=== PATIENT | female | born 1965 ===

== ENCOUNTER 2017-08-01 11:14 | Inpatient (IN) | payer MEDICAID, OTHER ==
[2017-08-01 11:19] VITALS: BMI 29.2
[2017-08-01 11:22] VITALS: O2SAT 98
[2017-08-01] MEDS ORDERED: Sodium Chloride 0.9% 1,000 ML IV ONE (12:23)
[2017-08-01] MEDS ORDERED: DiphenhydrAMINE 50 mg/ml Inj IVP STA (12:23)
--- NOTE | 2017-08-01 12:27 | C.PDOC ---
History Of Present Illness 52 yr old female presents to the ER stating she tried to harm herself today but was stopped by her . Patient states she wanted to cut her wrist. Patient denies history of depression or previous episodes of suicidal attempts. Also denies HI, hallucinations, nausea, vomiting, abdominal pain, weakness or numbness. 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) Suicide/Self Injury Attempted (Context): Cut Wrists Past Medical History Reviewed: Historical Data, Nursing Documentation, Vital Signs Vital Signs: Last Vital Signs Temp 98.6 F 08/01/17 11:19 Pulse 90 08/01/17 11:19 Resp 18 08/01/17 11:19 BP 137/85 08/01/17 11:19 Pulse Ox 98 08/01/17 14:06 - Medical History PMH: Anxiety, Depression Family History: States: No Known Family Hx - Social History Hx Alcohol Use: No Hx Substance Use: No - Immunization History Hx Tetanus Toxoid Vaccination: No Hx Influenza Vaccination: Yes Hx Pneumococcal Vaccination: No Review Of Systems Except As Marked, All Systems Reviewed And Found Negative. Gastrointestinal: Negative for: Nausea, Vomiting, Abdominal Pain Neurological: Negative for: Weakness, Numbness Psych: Positive for: Suicidal ideation Physical Exam - Physical Exam Appears: Non-toxic, No Acute Distress Skin: Warm, No Rash Head: Atraumatic, Normacephalic Eye(s): bilateral: Normal Inspection, PERRL, EOMI Oral Mucosa: Moist Respiratory: Normal Breath Sounds, No Rales, No Rhonchi, No Stridor, No Wheezing Gastrointestinal/Abdominal: Normal Exam, Soft, No Tenderness, No Guarding, No Rebound Extremity: Normal ROM, No Swelling Neurological/Psych: Oriented x3, Normal Speech, Normal Motor ED Course And Treatment - Laboratory Results Result Diagrams: 08/01/17 12:58 08/01/17 12:58 O2 Sat by Pulse Oximetry: 98 (RA) Pulse Ox Interpretation: Normal Medical Decision Making Medical Decision Making: PLAN: * Alcohol Serum * Drug Screen * CBC * CMP * Urinalysis * Benadryl IVP * Reglan IVP * Sodium Chloride IV The patient is medically cleared for psych eval/admission. Disposition - Disposition Disposition: HOSPITALIZED Disposition Time: 14:14 Condition: STABLE Forms: [facility] (Montenegrin) - POA Present On Arrival: None - Clinical Impression Clinical Impression: Major depressive disorder, single episode - PA / MAGAZINE DESIGNER / Resident Statement MD/DO has reviewed & agrees with the documentation as recorded. - Scribe Statement The provider has reviewed the documentation as recorded by the Scribe Paty Cervantes All medical record entries made by the Haleyibe were at my direction and personally dictated by me. I have reviewed the chart and agree that the record accurately reflects my personal performance of the history, physical exam, medical decision making, and the department course for this patient. I have also personally directed, reviewed, and agree with the discharge instructions and disposition.
[2017-08-01 13:01] LABS: HCG,QUALITATIVE URINE NEGATIVE (NEGATIVE)
[2017-08-01 13:07] LABS: SQUAMOUS EPITHIAL 11 /hpf (0-5); URINE BILIRUBIN NEGATIVE (NEGATIVE); URINE BLOOD NEGATIVE (NEGATIVE); URINE CLARITY Hazy (Clear); URINE COLOR Amber (YELLOW); URINE GLUCOSE (UA) NORMAL (Normal); URINE LEUKOCYTE ESTERASE NEG Leu/uL (Negative); URINE NITRATE NEGATIVE (NEGATIVE); URINE PROTEIN NEGATIVE (NEGATIVE); URINE UROBILINOGEN NORMAL mg/dL (0.2-1.0)
[2017-08-01 13:20] LABS: BASO % 0.3 % (0.0-2.0); EOS % 0.3 % (0.0-4.0); HEMOGLOBIN 14.9 g/dL (11.0-16.0); LYMPH # 1.5 K/uL (1.0-4.3); LYMPH % 18.7 % (20.0-40.0); MEAN CELL VOLUME 86.3 fL (81.0-99.0); MEAN CORPUSCULAR HEMOGLOBIN 28.1 pg (27.0-31.0); MEAN CORPUSCULAR HGB CONC 32.6 g/dL (33.0-37.0); MONO # 0.4 K/uL (0.0-0.8); MONO % 5.2 % (0.0-10.0); NEUT # 5.9 K/uL (1.8-7.0); NEUT % 75.5 % (50.0-75.0); RBC 5.3 Mil/uL (3.80-5.20); WHITE BLOOD COUNT 7.9 K/uL (4.8-10.8)
[2017-08-01 13:32] LABS: ALB/GLOB RATIO 1.1 (1.0-2.1); ALT/SGPT 43 U/L (9-52); AST/SGOT 38 U/L (14-36); BLOOD UREA NITROGEN 12 mg/dL (7-17); CALCIUM 8.7 mg/dl (8.6-10.4); GFR AFRICAN-AMERICAN > 60; GFR NON-AFRICAN AMERICAN > 60
[2017-08-01 13:48] LABS: BARBITURATES, UR NEGATIVE (NEGATIVE); BENZODIAZEPINES, UR NEGATIVE (NEGATIVE); PHENCYCLIDINE, UR NEGATIVE (NEGATIVE)
[2017-08-01 13:57] LABS: OPIATES, UR POSITIVE (NEGATIVE)
[2017-08-01] MEDS ORDERED: Aluminum Hydroxide/Magnesium Hydroxide Susp (30 mL) PO PRN (17:10)
[2017-08-01 17:15] VITALS: RESP 18; TEMP 98.1
--- NOTE | 2017-08-01 19:00 | PCM.BM ---
<Sisi Welch - Last Filed: 08/01/17 18:57> Treatment Plan Problems - Problems identified on initial assessmt depression Date Initiated: 08/01/17 Time Initiated: 18:59 Assessment reference: NA Status: Active Treatment assets and liabiliti Patient Assests: cooperative, educated, motivated, resourceful, physically healthy, good support system, negotiates basic needs, cognitively intact, good interpersonal skills Patient Liabilities: substance abuse <Kim Nice - Last Filed: 08/04/17 11:16> Family Contact Family involvement: Family/SO is involved Family contact: Patient declines to allow family contact at present - Goals for Treatment Patient goals for treatment: "I want to go home." Discharge/Continuing Care - Education Needs Education Needs: Patient Medication, Patient Coping Skills - Discharge Discharge Criteria: Tolerates medication w/o severe side effects, Free of Suicidal thoughts, Reduction of target symptoms Discharge to:: Home, With Family - Treatment Team Participation Discussed with Family/SO: No Was Patient/Family/SO present at Treatment Team Meeting: No
--- NOTE | 2017-08-02 22:21 | PCM.PSYCH ---
Initial Psychiatric Evaluation - Initial Psychiatric Evaluation Type of Admission: Voluntary Legal Status: Capacity Chief Complaint (in patient's own words): "My depression worsened for last 2 weeks" History of Present Illness and Precipitating Events: Patient is a 52 year old female who is admitted for worsening of depression and opioid detox. Patient, reported depressed mood with suicidal intention. Pt reported that yesterday she took a knife with the intention of stabbing herself but her intervened and brought her to the hospital. Patient, who has no previous psych history, expressed feeling overwhelmed. She was able to identify multiple stressors including a strained marriage (patients has committed infidelity) and family issues. Specifically being responsible for caring for her 3 grandsons who live with their mother [place] the [place]. Patient states her daughter is diagnosed with bipolar d/o and irresponsible. Additionally, she stated that she has to care of her daughter's children. Pt reproted that she has financial issues after she had been unemployed since February 2016. Patient worked for the [employer] for 11 years. Since then patient has been enrolled in [employer] classes to further her education and marketability. Pt expressed significant feelings of guilt and shame surrounding her use. Patient had been sober from opiates and cocaine for 16 years. Patient stopped using on 05/31/98. Patient was active in and had multiple sponsors. She detoxed once in a [place] facility and followed up with [facility]. That with her involvement in 12 step groups helped her to maintain sobriety. Patient relapsed in 2015 after her Carpal Tunnel surgery. She was prescribed pain meds (percocet) and when they ran out she relapsed on heroin. Patient is currently using 6-7 bags of heroin intra-nasally daily. Patient last use was yesterday. Pt reported opioid withdrawal symptoms including sweating, nausea, dairrhea, muscle cramps, hot and cold sweats. In the ER pt reported SI with a plan to cut her wrists. Patient contracted hospital for safety and currently denied SI. Current Medications: Active Medications Generic Name Dose Route Start Last Admin Trade Name Freq PRN Reason Stop Dose Admin Al Hydrox/Mg Hydrox/Simethicone 30 ml 08/01/17 17:10 Maalox 30 Ml PO Q6 PRN Indigestion / Heartburn Clonidine HCl 0.1 mg 08/01/17 23:49 08/02/17 02:57 Catapres PO 0.1 mg Q8 PRN Administration COWS Score More or Equal to 5 Gabapentin 100 mg 08/02/17 14:00 08/02/17 17:08 Neurontin PO 100 mg TID KEVIN Administration Hydroxyzine HCl 50 mg 08/01/17 17:12 08/02/17 21:16 Atarax PO 50 mg Q6 PRN Administration Anxiety Ibuprofen 600 mg 08/01/17 17:01 08/02/17 10:38 Motrin Tab PO 600 mg Q6 PRN Administration Pain, moderate (4-7) Loperamide HCl 2 mg 08/01/17 23:49 08/02/17 19:33 Imodium PO 2 mg Q8 PRN Administration Diarrhea Nicotine 1 patch 08/02/17 10:00 08/02/17 09:24 Nicoderm Cq TD 1 patch DAILY KEVIN Administration Ondansetron HCl 4 mg 08/01/17 23:49 Zofran Tab PO Q8 PRN Nausea/Vomiting Sertraline HCl 25 mg 08/02/17 11:15 08/02/17 11:52 Zoloft PO 25 mg DAILY KEVIN Administration Trazodone HCl 50 mg 08/01/17 17:11 08/02/17 21:16 Desyrel PO 50 mg HS PRN Administration Insomnia Past Psychiatric History - Past Psychiatric History Previous Treatment History: None History of Abuse: denied History of ETOH/Drug Use: please see HPI History of Family Illness: denied Pertinent Medical Hx (Current Medical&Sleep Prob, Allergies): Allergies Allergy/AdvReac Type Severity Reaction Status Date / Time No Known Allergies Allergy Verified 08/01/17 11:18 No Known Home Med 08/01/17 carpel tunnel syndrome Review of Systems - Review of Systems All systems: reviewed and no additional remarkable complaints except (please see HPI) - Constitutional Constitutional: Sweats, Malaise - EENT Eyes: As Per HPI, Discharge Ears: UNREMARKABLE Nose/Mouth/Throat: Nasal Congestion - Gastrointestinal Gastrointestinal: Heartburn, Nausea, Vomiting - Reproductive: Female Reproductive:Female: UNREMARKABLE - Menstruation Menstruation: UNREMARKABLE - Musculoskeletal Musculoskeletal: Muscle Cramps, Myalgias - Integumentary Integumentary: UNREMARKABLE - Neurological Neurological: UNREMARKABLE - Psychiatric Psychiatric: As Per HPI - Endocrine Endocrine: UNREMARKABLE Mental Status Examination - Personal Presentation Personal Presentation: Looks stated age, Dressed appropriate to season Additional comments: cooperative - Affect Affect: Constricted - Motor Activity Motor Activity: Calm - Reliability in Providing Information Reliability in Providing Information: Fair - Speech Speech: Organized - Mood Mood: Depressed - Formal Thought Process Formal Thought Process: No Impairment - Hallucinations/Delusions Hallucinations: Other (denied) - Obsessions/Compulsions Obsessions: None Compulsions: None - Cognitive Functions Orientation: Person, Place, Situation, Time Sensorium: Alert Attention/Concentration: Attentive Abstract Thinking: Hugo Estimate of Intelligence: Average Judgement: Intact, as evidence by: Good judgement, Intact, as evidence by: Insight regarding need for hospitalization Memory: Recent intact, as evidence by: Ability to recall events of the day - Risk Risk: Suicidal (passive, but no intent or plan) - Strength & Assets Inventory Strength & Assets Inventory: Family support, Education, Employment history, Spiritual affiliations, Cooperative - Limitations Limitations: Other (chronic medical illness) DSM 5 DX - DSM 5 DSM 5 Diagnosis: MDD, SINGLE, SEVERE, WITHOUT PSYCHOTIC FEATURES OPIOID DEPENDENCE, SEVERE, WITHDRAWAL SYMPTOMS. - Recommended/Plan of Treatment Treatment Recommendations and Plan of Treatment: Zoloft for depression Methadone detox Gabapentin for augmentation As needed meds and vitamins Attend groups and activities MS for abstinence and CBT for relapse prevention Support and psychoeducation Consider and encourage MAT~ Refer to after care 33 min Projected ELOS: 5-6 days Prognosis: good with medication compliance Discharge Plan and Discharge Criteria: as per discharge plan - Smoking Cessation Smoking Cessation Initiated: Yes
[2017-08-03 16:03] VITALS: BP 111/65; PULSE 62
--- NOTE | 2017-08-03 17:20 | PCM.PYCHPN ---
Psychiatric Progress Note - Psychiatric Progress Note Patient seen today, length of contact: 15 Notes Patient Chief Complaint: "I'm feeling better and I want to be discharged" Problems Identified/Issues Discussed: Patient was seen. Chart was reviewed important content noted. Nurse input received the patient had submitted a 48-hour sign out noticed. Patient has no new complaints. No events overnight. Patient slept well and is eating well. Patient denies depressive symptoms and reported improvement in her opioid withdrawal symptoms. Denies suicidal or homicidal ideations. Patient does not report hallucinations. No delusions elicited. No paranoia elicited. Patient has remained in good clinical and behavioral control. Symptoms are improving, but needs more time to stabilize. Patient is finding medications beneficial and would like to continue with treatment plan. Patient appreciated that treatment team is trying to help. Medication Change: No Medical Record Reviewed: No Mental Status Examination - Cognitive Function Orientation: Person, Place, Situation, Time Memory: Intact Attention: WNL Concentration: WNL Association: WNL Fund of Knowledge: WNL Decription of patient's judgement and insights: Limited/imited - Mood Mood: Anxious - Affect Affect: Constricted - Speech Speech: Appropriate - Formal Thought Process Formal Thought Process: No Impairment Psychotic Thoughts and Behaviors: denied - Suicidal Ideation Suicidal Ideation: No - Homicidal Ideation Homicidal Ideation: No Goal/Treatment Plan - Goal/Treatment Plan Progress Toward Problem(s) and Goals/Treatment Plan: ontinue Zoloft for depression Methadone detox Gabapentin for augmentation As needed meds and vitamins Attend groups and activities [place] for abstinence and CBT for relapse prevention Support and psychoeducation Consider and encourage MAT~ Refer to after care Estimated Date of D/C: 08/04/17 - Smoking Cessation Smoking Cessation Initiated: Yes
--- NOTE | 2017-08-04 11:28 | PCM.PYCHDC ---
Mental Status Examination - Mental Status Examination Orientation: Person, Place, Situation, Time Memory: Intact Mood: Neutral Affect: Constricted Speech: Soft Attention: WNL Concentration: WNL Association: WNL Fund of Knowledge: WNL Formal Thought Process: No Impairment Description of patient's judgement and insight: good, fair Psychotic Thoughts and Behaviors: denies any AVH Suicidal Ideation: No Current Homicidal Ideation?: No Discharge Summary - Discharge Note Reason for Hospitalization: Patient is a 52 year old female who is admitted for worsening of depression and opioid detox. Patient, reported depressed mood with suicidal intention. Pt reported that yesterday she took a knife with the intention of stabbing herself but her intervened and brought her to the hospital. Patient, who has no previous psych history, expressed feeling overwhelmed. She was able to identify multiple stressors including a strained marriage (patients has committed infidelity) and family issues. Specifically being responsible for caring for her 3 grandsons who live with their mother [place] the [address]. Patient states her daughter is diagnosed with bipolar d/o and irresponsible. Additionally, she stated that she has to care of her daughter's children. Pt reproted that she has financial issues after she had been unemployed since February 2016. Patient worked for the [employer] for 11 years. Since then patient has been enrolled in [employer] classes to further her education and marketability. Pt expressed significant feelings of guilt and shame surrounding her use. Patient had been sober from opiates and cocaine for 16 years. Patient stopped using on 05/31/98. Patient was active in and had multiple sponsors. She detoxed once in a [place] facility and followed up with [facility]. That with her involvement in 12 step groups helped her to maintain sobriety. Patient relapsed in 2015 after her Carpal Tunnel surgery. She was prescribed pain meds (percocet) and when they ran out she relapsed on heroin. Patient is currently using 6-7 bags of heroin intra-nasally daily. Patient last use was yesterday. Pt reported opioid withdrawal symptoms including sweating, nausea, dairrhea, muscle cramps, hot and cold sweats. In the ER pt reported SI with a plan to cut her wrists. Patient contracted hospital for safety and currently denied SI. Consultations:: List each consultation separately and include: 1. Reason for request. 2. Findings. 3. Follow-up Summary of Hospital Course include:: 1. Description of specific treatment plan utilized for patients during their course of treatmen. 2. Summarize the time- course for resolution of acute symptoms and/or regressed behaviors. 3. Describe issues identified and worked on during hospitalization. 4. Describe medication utilized. 5. Describe medical problems identified and treated. 6. Reassessment of suicide risk Summary of Hospital Course: During the course of her stay, patient (pt) started progressively improving and no longer remained irritable, depressed, and suicidal. Her mood and anxiety were improved and she started attending groups and meetings and started socializing. Patient denied any feelings of hopelessness, helplessness, and worthlessness, denied any problem with the sleep or appetite, denied suicidal ideation or homicidal ideation. Pt denied any auditory or visual hallucinations. Some changes were made in her current medications and patient was discharged on following medications. She tolerated these medications very well and denied any side effects. Pt signed 48 hour notice, which expires today. Pt is to follow-up with [facility] in [facility]. - Final Diagnosis (DSM 5) Condition upon Discharge: STABLE DSM 5: MDD, SINGLE, SEVERE, WITHOUT PSYCHOTIC FEATURES OPIOID DEPENDENCE, SEVERE, WITHDRAWAL SYMPTOMS. Disposition: HOME/ ROUTINE Follow-up Treatment Plan: Education: Pt was educated and counseled about the risks and benefits of taking and not taking medications. Pt was educated and counseled about the risks of drinking and abusing drugs. Pt was educated and counseled to go to the ER or call 911 if pt develop suicidal ideation or homicidal ideation, worsening of symptoms or severe side effects of the meds. Prescriptions/Medication Reconciliation: Gabapentin [Neurontin] 100 mg PO TID #90 cap Sertraline [Zoloft] 100 mg PO DAILY #30 tab traZODone [Desyrel] 50 mg PO HS PRN #30 tab PRN Reason: Insomnia - Smoking Cessation Smoking Cessation Medication prescribed: No - Antipsychotic Medications Pt discharged on 2 or more routine antipsychotic medications: No
== END 2017-08-04 12:25 | disposition home or self-care (01) | DRG 430 ==
LOC: C.ER 11:14 → C.5E 14:15
PROVIDERS: ADMIT Psychiatry & Neurology Psychiatry; ATTEND Psychiatry & Neurology Psychiatry
PROC: GZ3ZZZZ Medication Management (ICD-10-PCS; principal; 2017-08-01)
PROC: GZHZZZZ Group Psychotherapy (ICD-10-PCS; 2017-08-01)
PROC: HZ2ZZZZ Detoxification Services for Substance Abuse Treatment (ICD-10-PCS; 2017-08-01)
PROC: HZ59ZZZ Individual Psychotherapy for Substance Abuse Treatment, Supportive (ICD-10-PCS; 2017-08-01)
PROC: GZ56ZZZ Individual Psychotherapy, Supportive (ICD-10-PCS; 2017-08-01)
PROC: HZ46ZZZ Group Counseling for Substance Abuse Treatment, Psychoeducation (ICD-10-PCS; 2017-08-01)
DX: F32.2 Major depressive disorder, single episode, severe without psychotic features (principal); F11.23 Opioid dependence with withdrawal; R45.851 Suicidal ideations; F41.9 Anxiety disorder, unspecified; Z59.9 Problem related to housing and economic circumstances, unspecified